=== PATIENT | male | born 1960 | race Caucasian/White ===

== ENCOUNTER 2018-06-20 18:04 | Emergency (ER) | payer MEDICAID ==
[~2018-06-20] VITALS: Ht 193 cm; Wt 84.5 kg
[2018-06-20 18:32] VITALS: BP 120/85
[2018-06-20] MEDS ORDERED: ondansetron 4mg rapidly disintigrating tab PO ONE (20:35)
[2018-06-20] MEDS ORDERED: TETanus/Pertussis (Acell)/Diphther VAC/PF (Tdap-Adult) 0.5ml syringe IM ONE (20:35)
[2018-06-20] MEDS ORDERED: bacitracin 15gm ointment TP ONE (20:35)
[2018-06-20] MEDS ORDERED: CEPH500C5 PO (20:36)
[2018-06-20] MEDS ORDERED: DIPH25CA83 PO (20:36)
[2018-06-20] MEDS ORDERED: DOXY100C43 PO (20:36)
== END 2018-06-20 20:56 | disposition home or self-care (01) ==
LOC: ER 18:04
DX: L98.499 Non-pressure chronic ulcer of skin of other sites with unspecified severity (principal); Z60.2 Problems related to living alone; Z59.0 Homelessness; Z56.0 Unemployment, unspecified; Z79.2 Long term (current) use of antibiotics; Z79.899 Other long term (current) drug therapy; W57.XXXA Bitten or stung by nonvenomous insect and other nonvenomous arthropods, initial encounter; Y93.89 Activity, other specified; Y92.89 Other specified places as the place of occurrence of the external cause; Y99.8 Other external cause status
CPT/HCPCS: 90471; 90715; 99283

== ENCOUNTER 2018-09-08 21:58 | Emergency (ER) | payer MEDICAID ==
[~2018-09-08] VITALS: Ht 193 cm; Wt 114.6 kg
[~2018-09-08 21:58] MED LIST: CEPH500C5 PO; DIPH25CA83 PO
[2018-09-08 22:07] VITALS: BP 127/92
[2018-09-08] MEDS ORDERED: CLOT15CR73 TP (22:23)
== END 2018-09-08 22:31 | disposition home or self-care (01) ==
LOC: ER 21:58
DX: B35.3 Tinea pedis (principal); Z56.0 Unemployment, unspecified; Z59.0 Homelessness
CPT/HCPCS: 99283

== ENCOUNTER 2021-06-07 03:59 | Inpatient (IN) | payer MEDICAID ==
[~2021-06-07] VITALS: Ht 193 cm; Wt 109.1 kg
[~2021-06-07 03:59] MED LIST changes: -CEPH500C5 PO; +CLOT15CR73 TP
[2021-06-07 04:34] LABS: BASOPHILS # (AUTO) 0.1 X10'3 (0-0.2); BASOPHILS % (AUTO) 0.5 % (0-1); EOSINOPHILS % (AUTO) 0 % (0-6); HEMATOCRIT 45.9 % (42.0-52.0); HEMOGLOBIN 15.2 g/dl (14.0-17.9); LYMPHOCYTES # (AUTO) 1.5 X10'3 (1.1-4.8); LYMPHOCYTES % (AUTO) 7.1 % (21-51); MEAN CORPUSCULAR HEMOGLOBIN 30.6 PG (27.0-31.0); MEAN CORPUSCULAR HGB CONC 33.1 g/dL (33.0-36.5); MEAN CORPUSCULAR VOLUME 92.3 FL (78-98); MONOCYTES # (AUTO) 0.9 X10'3 (0-0.9); MONOCYTES % (AUTO) 4.1 % (2-12); NEUTROPHILS # (AUTO) 18.9 X10'3 (1.8-7.7); NEUTROPHILS % (AUTO) 88.3 % (42-75); PLATELET COUNT 202 X10'3 (140-440); RED BLOOD COUNT 4.97 X10'6 (4.70-6.10); RED CELL DISTRIBUTION WIDTH 13.2 % (11.5-14.5); WHITE BLOOD COUNT 21.4 X10'3 (4.5-11.0)
[2021-06-07 04:47] LABS: ALANINE AMINOTRANSFERASE 23 U/L (12-78); ALBUMIN 3.9 G/DL (3.4-5.0); ALBUMIN/GLOBULIN RATIO 0.9 (1.1-1.5); ALKALINE PHOSPHATASE 122 IU/L (46-116); ANION GAP 7 (8-16); ASPARTATE AMINO TRANSFERASE 15 U/L (10-37); BILIRUBIN,TOTAL 0.8 MG/DL (0.1-1.0); BLOOD UREA NITROGEN 14 MG/DL (7-18); BUN/CREATININE RATIO 12.8 (5.4-32.0); CHLORIDE 100 MMOL/L (99-107); CREATININE 1.09 MG/DL (0.60-1.10); GLUCOSE 157 MG/DL (70-104); POTASSIUM 3.8 MMOL/L (3.5-5.1); SODIUM 137 MMOL/L (135-145); TOTAL CARBON DIOXIDE 30.4 MMOL/L (24-32); TOTAL PROTEIN 8.2 G/DL (6.4-8.2); eGFR 69 ML/MIN
[2021-06-07] MEDS ORDERED: normal saline 1000ML IV soln IVB ONE (05:40)
[2021-06-07] MEDS ORDERED: levoFLOXACIN-Levaquin 750MG/D5 150 ML IV ONE (05:40)
[2021-06-07 06:11] LABS: CLARITY,URINE CLEAR (Clear); COLOR,URINE YELLOW (Yellow); GLUCOSE, URINE NEGATIVE (Neg); KETONES,URINE NEGATIVE (Neg); LEUKOCYTE ESTERASE ,URINE NEGATIVE (Neg); NITRITES, URINE NEGATIVE (Neg); OCCULT BLOOD,URINE NEGATIVE (Neg); PROTEIN,URINE NEGATIVE (Neg); UROBILINOGEN,URINE 0.2 E.U/dL (0.2-1.0)
[2021-06-07 06:13] LABS: UA COLLECTION TYPE NON-SPECIFIED
[2021-06-07 06:21] LABS: D-DIMER 0.85 MG/L FEU (0-0.50)
[2021-06-07 06:47] LABS: URINE AMPHETAMINE SCREEN NEGATIVE (Neg); URINE BARBITUATE SCREEN NEGATIVE (Neg); URINE BENZODIAZEPINES SCREEN NEGATIVE (Neg); URINE CANNABINOID SCREEN NEGATIVE (Neg); URINE COCAINE SCREEN NEGATIVE (Neg); URINE METHADONE SCREEN NEGATIVE (Neg); URINE OPIATE SCREEN NEGATIVE (Neg); URINE PHENCYCLIDINE SCREEN NEGATIVE (Neg)
[2021-06-07] MEDS ORDERED: aspirin 81mg tab.chew PO ONE (07:05)
[2021-06-07] MEDS ORDERED: iohexol 350MG/ML 100ml bottle IV ONE (07:48)
[2021-06-07] MEDS ORDERED: NO HOME MEDS (09:06)
[2021-06-07] MEDS ORDERED: acetaminophen 325mg tablet PO PRN (10:25)
[2021-06-07] MEDS ORDERED: magnesium hydroxide 30ml (MOM) UD suspension PO PRN (10:25)
[2021-06-07] MEDS ORDERED: magnesium 4gm in 100ml NS 100 ML IV PRN (10:25)
[2021-06-07] MEDS ORDERED: magnesium 2GM in 50ml NS 50 ML IV PRN (10:25)
[2021-06-07] MEDS ORDERED: ondansetron/PF 4mg/2ml inj IV PRN (10:25)
[2021-06-07] MEDS ORDERED: magnesium Cl slow-release 64mg tablet PO PRN (10:25)
[2021-06-07] MEDS ORDERED: potassium Cl 20 mEq SR tablet PO PRN ×2 (10:25)
[2021-06-07] MEDS ORDERED: mag hydrox/Alum hydrox/simeth 30ml oral suspension PO PRN (10:25)
[2021-06-07] MEDS ORDERED: potassium CL 10mEq/100ml bag 100 ML IV PRN (10:25)
[2021-06-07 11:53] LABS: MAGNESIUM 1.7 MG/DL (1.5-2.4); POTASSIUM 3.6 MMOL/L (3.5-5.1)
[2021-06-07] MEDS: normal saline 1000ml 1,000 ML IV SCH ×2 (11:59→20:25)
--- NOTE | 2021-06-07 13:30 | NUR ---
patient up to the br.
[2021-06-07] MEDS ORDERED: albuterol 2.5 MG/3 ML nebule NEB PRN (14:00)
--- NOTE | 2021-06-07 17:40 | NUR ---
Received report from EMILIANA Mosquera from ER. Patient arrived to the floor. SANDI.
[2021-06-07 17:45] VITALS: BP 98/55
--- NOTE | 2021-06-07 17:52 | NUR ---
Page sent to RT....\ 307B: FYIThelmanew RT orders. thanks! Addendum: 06/07/21 at 1753 by Pauline Davenport RN Amended: Links added.
[2021-06-07 18:00] VITALS: BP 104/58
--- NOTE | 2021-06-07 18:28 | NUR ---
Problems reprioritized. Patient report given, questions answered & plan of care reviewed with EMILIANA Venegas.
[2021-06-07 20:00] VITALS: BP 107/64
[2021-06-07] MEDS: K and/or MAG REPLACEMENT MC SCH (20:00)
[2021-06-07] MEDS: docusate sod 100mg capsule PO SCH (20:00)
[2021-06-08 06:00] VITALS: BP 101/56
[2021-06-08] MEDS: normal saline 1000ml 1,000 ML IV SCH ×3 (06:25→21:28)
[2021-06-08 06:35] LABS: BASOPHILS % (AUTO) 0.2 % (0-1); EOSINOPHILS # (AUTO) 0.1 X10'3 (0-0.9); EOSINOPHILS % (AUTO) 0.4 % (0-6); HEMATOCRIT 40.7 % (42.0-52.0); HEMOGLOBIN 13.4 g/dl (14.0-17.9); LYMPHOCYTES # (AUTO) 2.6 X10'3 (1.1-4.8); LYMPHOCYTES % (AUTO) 15.3 % (21-51); MEAN CORPUSCULAR HEMOGLOBIN 30.7 PG (27.0-31.0); MEAN CORPUSCULAR HGB CONC 32.8 g/dL (33.0-36.5); MEAN CORPUSCULAR VOLUME 93.5 FL (78-98); MEAN PLATELET VOLUME 8.9 FL (7.4-10.4); MONOCYTES # (AUTO) 1.1 X10'3 (0-0.9); MONOCYTES % (AUTO) 6.7 % (2-12); NEUTROPHILS % (AUTO) 77.4 % (42-75); PLATELET COUNT 164 X10'3 (140-440); RED BLOOD COUNT 4.36 X10'6 (4.70-6.10); RED CELL DISTRIBUTION WIDTH 13.3 % (11.5-14.5); WHITE BLOOD COUNT 16.9 X10'3 (4.5-11.0)
[2021-06-08] MEDS: docusate sod 100mg capsule PO SCH ×2 (07:11→20:00)
[2021-06-08] MEDS: azithromycin 250mg tablet PO SCH (07:11)
[2021-06-08] MEDS: enoxaparin 40mg/0.4ml syringe SUBCUT SCH (07:12)
[2021-06-08] MEDS: CefTRIAXone 2gm/D5W 50ml BAG 50 ML IV SCH (07:12)
[2021-06-08 07:15] LABS: ANION GAP 8 (8-16); BLOOD UREA NITROGEN 11 MG/DL (7-18); BUN/CREATININE RATIO 14.1 (5.4-32.0); CALCIUM 8.6 MG/DL (8.5-10.1); CHLORIDE 104 MMOL/L (99-107); CREATININE 0.78 MG/DL (0.60-1.10); GLUCOSE 113 MG/DL (70-104); MAGNESIUM 2.3 MG/DL (1.5-2.4); POTASSIUM 3.8 MMOL/L (3.5-5.1); SODIUM 138 MMOL/L (135-145); TOTAL CARBON DIOXIDE 26.1 MMOL/L (24-32); eGFR > 90 ML/MIN
[2021-06-08] MEDS: K and/or MAG REPLACEMENT MC SCH ×2 (08:00→20:00)
[2021-06-08 11:00] VITALS: BP 116/80
[2021-06-08 15:00] VITALS: BP 125/73
--- NOTE | 2021-06-08 18:34 | NUR ---
Patient in room MED 307. I have received report from EMILIANA Pierre and had the opportunity to ask questions and assume patient care.
--- NOTE | 2021-06-08 18:38 | NUR ---
Problems reprioritized. Patient report given, questions answered & plan of care reviewed with Cara HOPSON.
[2021-06-08] MEDS: lactobacillus rhamnosus 10,000 MMU CELLS/CAPSULE PO SCH (19:17)
[2021-06-08 22:00] VITALS: BP 116/74
[2021-06-09 02:00] VITALS: BP 123/80
[2021-06-09 06:00] VITALS: BP_SYST 106; BP_SYST 116; BP_DIAS 65; BP_DIAS 69
--- NOTE | 2021-06-09 06:41 | NUR ---
Problems reprioritized. Patient report given, questions answered & plan of care reviewed with EMILIANA Hoyt.
[2021-06-09 06:44] LABS: BASOPHILS % (AUTO) 0.4 % (0-1); EOSINOPHILS # (AUTO) 0.2 X10'3 (0-0.9); EOSINOPHILS % (AUTO) 1.8 % (0-6); HEMATOCRIT 39.9 % (42.0-52.0); HEMOGLOBIN 13.4 g/dl (14.0-17.9); LYMPHOCYTES # (AUTO) 2.7 X10'3 (1.1-4.8); LYMPHOCYTES % (AUTO) 22.1 % (21-51); MEAN CORPUSCULAR HEMOGLOBIN 30.9 PG (27.0-31.0); MEAN CORPUSCULAR HGB CONC 33.6 g/dL (33.0-36.5); MEAN PLATELET VOLUME 8.6 FL (7.4-10.4); MONOCYTES # (AUTO) 0.8 X10'3 (0-0.9); MONOCYTES % (AUTO) 6.7 % (2-12); NEUTROPHILS # (AUTO) 8.6 X10'3 (1.8-7.7); PLATELET COUNT 184 X10'3 (140-440); RED BLOOD COUNT 4.34 X10'6 (4.70-6.10); RED CELL DISTRIBUTION WIDTH 13.5 % (11.5-14.5); WHITE BLOOD COUNT 12.4 X10'3 (4.5-11.0)
[2021-06-09 06:56] LABS: ANION GAP 5 (8-16); BLOOD UREA NITROGEN 10 MG/DL (7-18); BUN/CREATININE RATIO 12.2 (5.4-32.0); CALCIUM 8.5 MG/DL (8.5-10.1); CHLORIDE 108 MMOL/L (99-107); CREATININE 0.82 MG/DL (0.60-1.10); GLUCOSE 120 MG/DL (70-104); MAGNESIUM 2.1 MG/DL (1.5-2.4); POTASSIUM 3.8 MMOL/L (3.5-5.1); SODIUM 141 MMOL/L (135-145); TOTAL CARBON DIOXIDE 28.3 MMOL/L (24-32); eGFR > 90 ML/MIN
[2021-06-09] MEDS: CefTRIAXone 2gm/D5W 50ml BAG 50 ML IV SCH (07:37)
[2021-06-09] MEDS: azithromycin 250mg tablet PO SCH (07:37)
[2021-06-09] MEDS: lactobacillus rhamnosus 10,000 MMU CELLS/CAPSULE PO SCH ×2 (07:37→20:44)
[2021-06-09] MEDS: K and/or MAG REPLACEMENT MC SCH ×2 (07:38→20:00)
[2021-06-09] MEDS: enoxaparin 40mg/0.4ml syringe SUBCUT SCH (07:38)
[2021-06-09] MEDS: docusate sod 100mg capsule PO SCH ×2 (07:38→20:00)
[2021-06-09] MEDS ORDERED: methyl salicylate/menthol cream 57gm TP PRN (10:15)
[2021-06-09 11:30] VITALS: BP 117/73
[2021-06-09] MEDS: normal saline 1000ml 1,000 ML IV SCH ×2 (12:25→22:25)
[2021-06-09] MEDS: vancomycin/NS 1 GM ADD-VANTAGE 250 ML IV SCH ×2 (13:06→20:49)
[2021-06-09 15:44] VITALS: BP 125/77
--- NOTE | 2021-06-09 17:59 | NUR ---
Pt. disgruntled, raising voice at nurse. States his IV has been uncomfortable all day and that he can not keep his arm straight. He wants a new IV placed STAT. all supplies gather to place new PIV. Pt. refused to have IV started r/t he wants a shower at the same time. Apologizes for rude behavior stating "I have a social anxiety issue."
--- NOTE | 2021-06-09 18:35 | NUR ---
Gave report to Naya Velarde RN.
--- NOTE | 2021-06-09 18:38 | NUR ---
Patient in room MED 307. I have received report from EMILIANA Hoyt and had the opportunity to ask questions and assume patient care.
--- NOTE | 2021-06-09 18:58 | NUR ---
Patient pulled IV. Resisting new start until he has had shower. Will place as soon as able. Patient now lying in bed, watching TV. No complaints.
[2021-06-09 22:34] VITALS: BP 111/61
[2021-06-10 03:22] VITALS: BP 114/61
[2021-06-10] MEDS ORDERED: VANCOMYCIN LEVEL IV ONE (03:30)
[2021-06-10] MEDS: vancomycin/NS 1 GM ADD-VANTAGE 250 ML IV SCH (03:49)
[2021-06-10 04:18] LABS: BASOPHILS # (AUTO) 0.1 X10'3 (0-0.2); BASOPHILS % (AUTO) 0.6 % (0-1); EOSINOPHILS # (AUTO) 0.3 X10'3 (0-0.9); EOSINOPHILS % (AUTO) 2.9 % (0-6); HEMATOCRIT 39.2 % (42.0-52.0); HEMOGLOBIN 13.3 g/dl (14.0-17.9); LYMPHOCYTES # (AUTO) 2.6 X10'3 (1.1-4.8); LYMPHOCYTES % (AUTO) 29.4 % (21-51); MEAN CORPUSCULAR HEMOGLOBIN 31.1 PG (27.0-31.0); MEAN CORPUSCULAR HGB CONC 33.9 g/dL (33.0-36.5); MEAN CORPUSCULAR VOLUME 91.9 FL (78-98); MEAN PLATELET VOLUME 8.7 FL (7.4-10.4); MONOCYTES # (AUTO) 0.8 X10'3 (0-0.9); MONOCYTES % (AUTO) 9.1 % (2-12); NEUTROPHILS # (AUTO) 5.1 X10'3 (1.8-7.7); PLATELET COUNT 197 X10'3 (140-440); RED BLOOD COUNT 4.26 X10'6 (4.70-6.10); RED CELL DISTRIBUTION WIDTH 13.4 % (11.5-14.5); WHITE BLOOD COUNT 8.8 X10'3 (4.5-11.0)
[2021-06-10 04:26] LABS: ALBUMIN 2.9 G/DL (3.4-5.0); ANION GAP 8 (8-16); BLOOD UREA NITROGEN 12 MG/DL (7-18); BUN/CREATININE RATIO 13.8 (5.4-32.0); CALCIUM 8.3 MG/DL (8.5-10.1); CHLORIDE 107 MMOL/L (99-107); CREATININE 0.87 MG/DL (0.60-1.10); GLUCOSE 113 MG/DL (70-104); MAGNESIUM 2.1 MG/DL (1.5-2.4); POTASSIUM 3.7 MMOL/L (3.5-5.1); SODIUM 142 MMOL/L (135-145); TOTAL CARBON DIOXIDE 27.2 MMOL/L (24-32); VANCOMYCIN,TROUGH 13.1 UG/ML (6.0-14.0); eGFR 89 ML/MIN
--- NOTE | 2021-06-10 06:12 | NUR ---
Problems reprioritized. Patient report given, questions answered & plan of care reviewed with EMILIANA Aguilar.
--- NOTE | 2021-06-10 06:34 | NUR ---
Patient in room MED 307. I have received report from rodriguez sanchez and had the opportunity to ask questions and assume patient care.
[2021-06-10] MEDS: azithromycin 250mg tablet PO SCH (07:18)
[2021-06-10] MEDS: enoxaparin 40mg/0.4ml syringe SUBCUT SCH (07:18)
[2021-06-10] MEDS: lactobacillus rhamnosus 10,000 MMU CELLS/CAPSULE PO SCH ×2 (07:19→19:20)
[2021-06-10] MEDS: normal saline 1000ml 1,000 ML IV SCH ×2 (07:19→20:31)
[2021-06-10] MEDS: CefTRIAXone 2gm/D5W 50ml BAG 50 ML IV SCH (07:19)
[2021-06-10] MEDS: docusate sod 100mg capsule PO SCH ×2 (07:25→18:44)
[2021-06-10 07:40] VITALS: BP 124/73
[2021-06-10] MEDS: K and/or MAG REPLACEMENT MC SCH ×2 (08:00→18:43)
[2021-06-10 11:31] VITALS: BP 120/63
[2021-06-10] MEDS: VANCOmycin 1250MG/NS 250ml Bag 250 ML IV SCH ×2 (11:36→20:32)
[2021-06-10 16:37] VITALS: BP 133/84
[2021-06-10] MEDS ORDERED: COVID-19 VACC, MRNA(PFIZER)/PF--BNT162b2 syringe IMVAC ONE (16:45)
--- NOTE | 2021-06-10 18:42 | NUR ---
Problems reprioritized. Patient report given, questions answered & plan of care reviewed with parker sanchez.
[2021-06-10 19:00] VITALS: BP 136/92
[2021-06-10 22:00] VITALS: BP 128/79
[2021-06-11 02:00] VITALS: BP 120/61
[2021-06-11] MEDS: normal saline 1000ml 1,000 ML IV SCH (04:25)
[2021-06-11] MEDS: VANCOmycin 1250MG/NS 250ml Bag 250 ML IV SCH (04:44)
[2021-06-11 06:07] LABS: BASOPHILS % (AUTO) 0.5 % (0-1); EOSINOPHILS # (AUTO) 0.2 X10'3 (0-0.9); EOSINOPHILS % (AUTO) 2.6 % (0-6); HEMATOCRIT 40.5 % (42.0-52.0); HEMOGLOBIN 13.6 g/dl (14.0-17.9); LYMPHOCYTES # (AUTO) 2.5 X10'3 (1.1-4.8); LYMPHOCYTES % (AUTO) 30.2 % (21-51); MEAN CORPUSCULAR HGB CONC 33.5 g/dL (33.0-36.5); MEAN CORPUSCULAR VOLUME 92.5 FL (78-98); MEAN PLATELET VOLUME 8.3 FL (7.4-10.4); MONOCYTES # (AUTO) 0.8 X10'3 (0-0.9); MONOCYTES % (AUTO) 9.5 % (2-12); NEUTROPHILS # (AUTO) 4.8 X10'3 (1.8-7.7); NEUTROPHILS % (AUTO) 57.2 % (42-75); PLATELET COUNT 213 X10'3 (140-440); RED BLOOD COUNT 4.37 X10'6 (4.70-6.10); RED CELL DISTRIBUTION WIDTH 13.5 % (11.5-14.5); WHITE BLOOD COUNT 8.4 X10'3 (4.5-11.0)
--- NOTE | 2021-06-11 06:12 | NUR ---
Problems reprioritized. Patient report given, questions answered & plan of care reviewed with EMILIANA Aguilar.
[2021-06-11 06:39] LABS: ALBUMIN 2.9 G/DL (3.4-5.0); ANION GAP 10 (8-16); BLOOD UREA NITROGEN 9 MG/DL (7-18); BUN/CREATININE RATIO 11.3 (5.4-32.0); CALCIUM 8.6 MG/DL (8.5-10.1); CHLORIDE 109 MMOL/L (99-107); GLUCOSE 101 MG/DL (70-104); MAGNESIUM 2.2 MG/DL (1.5-2.4); POTASSIUM 3.9 MMOL/L (3.5-5.1); SODIUM 143 MMOL/L (135-145); eGFR > 90 ML/MIN
[2021-06-11 07:00] VITALS: BP 120/75
[2021-06-11] MEDS: docusate sod 100mg capsule PO SCH (08:00)
[2021-06-11] MEDS: K and/or MAG REPLACEMENT MC SCH (08:00)
[2021-06-11] MEDS: CefTRIAXone 2gm/D5W 50ml BAG 50 ML IV SCH (08:25)
[2021-06-11] MEDS: azithromycin 250mg tablet PO SCH (08:26)
[2021-06-11] MEDS: enoxaparin 40mg/0.4ml syringe SUBCUT SCH (08:26)
[2021-06-11] MEDS: lactobacillus rhamnosus 10,000 MMU CELLS/CAPSULE PO SCH (08:26)
[2021-06-11] MEDS ORDERED: COVID-19 VACC, MRNA(PFIZER)/PF--BNT162b2 syringe IMVAC ONE (09:00)
[2021-06-11] MEDS ORDERED: CEFU500T66 PO (10:43)
--- NOTE | 2021-06-11 11:23 | NUR ---
Patient discharged in stable condition to home with friend. Iv removed, tip intact, no complications. Belongings sent with pt. Pt educated on discharge follow up. Patient discharged at 1120.
[2021-06-11] MEDS ORDERED: VANCOMYCIN LEVEL IV ONE (11:30)
== END 2021-06-11 11:19 | disposition home or self-care (01) | DRG 720 ==
LOC: ER 04:00 → ED HOLD 10:26 → MED 3N 17:00
PROVIDERS: ADMIT Family Medicine; ATTEND Family Medicine
PROC: B32T1ZZ Computerized Tomography (CT Scan) of Left Pulmonary Artery using Low Osmolar Contrast (ICD-10-PCS; principal; 2021-06-07)
PROC: B3201ZZ Computerized Tomography (CT Scan) of Thoracic Aorta using Low Osmolar Contrast (ICD-10-PCS; 2021-06-07)
PROC: B32S1ZZ Computerized Tomography (CT Scan) of Right Pulmonary Artery using Low Osmolar Contrast (ICD-10-PCS; 2021-06-07)
DX: A41.9 Sepsis, unspecified organism (principal); J18.9 Pneumonia, unspecified organism; F12.90 Cannabis use, unspecified, uncomplicated; Z20.822 Contact with and (suspected) exposure to COVID-19; F17.210 Nicotine dependence, cigarettes, uncomplicated; R00.0 Tachycardia, unspecified; I10 Essential (primary) hypertension; J44.0 Chronic obstructive pulmonary disease with (acute) lower respiratory infection; G62.9 Polyneuropathy, unspecified; Z59.00 Homelessness unspecified; Z56.0 Unemployment, unspecified
CPT/HCPCS: 36415; 71045; 71046; 71275; 80048; 80053; 80202; 80305; 81003; 83605; 83735; 83880; 84132; 84484; 85025; 85379; 87040; 87077; 87081; 87186; 87635; 93005; 94640; 94668; 94760; 99285; C9803; G0378; J0696; J1650; J1956; J3370; J7030; Q9967

== ENCOUNTER 2021-09-02 13:19 | Emergency (ER) | payer MEDICAID ==
[~2021-09-02] VITALS: Ht 193 cm; Wt 108.0 kg
[~2021-09-02 13:19] MED LIST changes: +CEFU500T66 PO; -CLOT15CR73 TP; -DIPH25CA83 PO
[2021-09-02 13:25] VITALS: BP 112/78
[2021-09-02 13:56] LABS: BASOPHILS # (AUTO) 0.1 X10'3 (0-0.2); BASOPHILS % (AUTO) 0.7 % (0-1); EOSINOPHILS # (AUTO) 0.2 X10'3 (0-0.9); EOSINOPHILS % (AUTO) 1.9 % (0-6); HEMATOCRIT 44.6 % (42.0-52.0); HEMOGLOBIN 14.6 g/dl (14.0-17.9); LYMPHOCYTES # (AUTO) 2.9 X10'3 (1.1-4.8); LYMPHOCYTES % (AUTO) 26.4 % (21-51); MEAN CORPUSCULAR HEMOGLOBIN 29.7 PG (27.0-31.0); MEAN CORPUSCULAR HGB CONC 32.6 g/dL (33.0-36.5); MEAN PLATELET VOLUME 8.4 FL (7.4-10.4); MONOCYTES # (AUTO) 0.9 X10'3 (0-0.9); MONOCYTES % (AUTO) 8.5 % (2-12); NEUTROPHILS # (AUTO) 6.9 X10'3 (1.8-7.7); NEUTROPHILS % (AUTO) 62.5 % (42-75); PLATELET COUNT 211 X10'3 (140-440); RED BLOOD COUNT 4.91 X10'6 (4.70-6.10); WHITE BLOOD COUNT 11.1 X10'3 (4.5-11.0)
[2021-09-02 14:02] LABS: CLARITY,URINE CLEAR (Clear); COLOR,URINE YELLOW (Yellow); GLUCOSE, URINE NEGATIVE (Neg); KETONES,URINE NEGATIVE (Neg); LEUKOCYTE ESTERASE ,URINE NEGATIVE (Neg); NITRITES, URINE NEGATIVE (Neg); OCCULT BLOOD,URINE NEGATIVE (Neg); PH,URINE 6.5 (4.8-8.0); PROTEIN,URINE NEGATIVE (Neg); UROBILINOGEN,URINE 0.2 E.U/dL (0.2-1.0)
[2021-09-02 14:03] LABS: UA COLLECTION TYPE VOIDED
[2021-09-02 14:10] LABS: ALANINE AMINOTRANSFERASE 28 U/L (12-78); ALBUMIN 3.9 G/DL (3.4-5.0); ALKALINE PHOSPHATASE 121 IU/L (46-116); ANION GAP 12 (8-16); ASPARTATE AMINO TRANSFERASE 25 U/L (10-37); BILIRUBIN,TOTAL 0.5 MG/DL (0.1-1.0); BLOOD UREA NITROGEN 22 MG/DL (7-18); BUN/CREATININE RATIO 17.7 (5.4-32.0); CHLORIDE 107 MMOL/L (99-107); CREATININE 1.24 MG/DL (0.60-1.10); GLUCOSE 109 MG/DL (70-104); LIPASE 71 U/L (73-393); POTASSIUM 4.2 MMOL/L (3.5-5.1); SODIUM 144 MMOL/L (135-145); TOTAL CARBON DIOXIDE 24.9 MMOL/L (24-32); eGFR 59 ML/MIN
[2021-09-02 14:14] LABS: CALCIUM 9.1 MG/DL (8.5-10.1)
[2021-09-02] MEDS ORDERED: FLO0.4C PO (14:24)
== END 2021-09-02 14:46 | disposition home or self-care (01) ==
LOC: ER 13:19
DX: R33.9 Retention of urine, unspecified (principal); R39.15 Urgency of urination; R39.11 Hesitancy of micturition; I10 Essential (primary) hypertension; J44.9 Chronic obstructive pulmonary disease, unspecified; Z87.01 Personal history of pneumonia (recurrent); Z72.89 Other problems related to lifestyle; Z60.2 Problems related to living alone; Z59.00 Homelessness unspecified; Z56.0 Unemployment, unspecified; Z79.2 Long term (current) use of antibiotics; Z79.899 Other long term (current) drug therapy
CPT/HCPCS: 36415; 80053; 81003; 83690; 85025; 99283